=== PATIENT | male | born 1965 | race African-American/Black ===

== ENCOUNTER 2017-01-09 23:31 | Observation (INO) ==
[2017-01-09] MEDS ORDERED: SODIUM CHLORIDE 0.9% 1,000 ML IV STA (23:45)
--- NOTE | 2017-01-09 23:51 | Emergency Department Note ---
Prince Bustillo Brittany, am scribing for, and in the presence of, Mickey Chaudhry MD 23:50. Richa Bustillo Charles R, MD, personally performed the services described in this documentation, ascribed by Mariama Morrison in my presence, and it is both accurate and complete 351 . Arrival - Arrival Chief Complaint: Syncope ED Nursing Triage Note: C/O Syncopal Episode while talking to his friend. Pt reports drinking 2 beers earlier before this happened. Pt states he feels tired. Mode of Arrival: Stretcher Limitations: No Limitations Source: Patient, RN Notes Reviewed - History of Present Illness HPI Narrative: Patient is a 51 y/o black male presenting to the ED via EMS with c/o syncopal episode x2 that occurred tonight. Patient states that he was standing, talking to a friend when he had a syncopal episode. He reports that he has had some shortness of breath and feels very fatigued, but has not had any chest pain, headaches, abdominal pain, or nausea/vomiting. Denies family history of heart disease. Patient admits to EtOH use tonight stating that he drank two 24 oz. beers, but denies use of recreational drugs or tobacco. Patient does not verbalize any other complaints. Allergies/Adverse Reactions: Allergies Allergy/AdvReac Type Severity Reaction Status Date / Time No Known Allergies Allergy Verified 01/09/17 23:39 Home Medications: Home Medications Medication Instructions Recorded Confirmed Type No Known Home Medications [No 01/09/17 01/09/17 History Known Home Medications] Review of System - Review of System 12 point system: reviewed and no additional remarkable complaints except as stated - Review of System Constitutional: Present: weakness Respiratory: Present: respiratory distress Cardiovascular: Present: syncope. Absent: chest pain Gastrointestinal: Absent: nausea, vomiting Neurological: Absent: headache Medical,Surgical,& Family Hx - Social History Smoking Status: Never smoker Frequency of Alcohol Use: Frequently Type of Drug Use: None Exam Vital Signs: Vital Signs Temperature 98.8 F 01/09/17 23:39 Pulse Rate 78 01/09/17 23:51 Respiratory Rate 20 01/09/17 23:51 Blood Pressure 96/61 01/09/17 23:51 O2 Sat by Pulse Oximetry 98 01/09/17 23:51 - General General appearance: alert, lethargic - Head Head exam: Present: atraumatic, normocephalic - Eye Eye exam: Present: PERRL, EOMI - ENT ENT exam: Present: normal oropharynx, mucous membranes moist - Neck Neck exam: Present: normal inspection, full ROM, trachea midline - Chest Chest inspection: Present: normal inspection, symmetric chest wall rise - Respiratory Respiratory exam: Present: normal lung sounds bilaterally - Cardiovascular Cardiovascular exam: Present: regular rate, normal rhythm, normal heart sounds - Abdominal Exam Abdominal exam: Present: soft, normal bowel sounds. Absent: tenderness - Extremities Exam Extremities exam: Present: normal inspection - Back Exam Back exam: Present: normal inspection - Neurological Exam Neurological exam: Present: alert, oriented X3, CN II-XII intact. Absent: motor sensory deficit - Psychiatric Psychiatric exam: Present: normal affect, normal mood - Skin Skin exam: Present: warm, dry, intact, normal color Course - Consultations Consultation #1: Spoke to Dr. Ramos about the EKG with ST segment changes on the anterior leads. He did not think this is a STEMI. Workup medically Time: 23:45 Consultation #2: Hospitalist will admit patient Time: 00:42 Results - Labs CBC & BMP: 01/09/17 23:44 01/09/17 23:44 Lab Results: I have reviewed the patients labs Labs: Laboratory Tests 01/09/17 01/09/17 23:44 23:44 WBC 7.4 RBC 4.44 Hgb 13.5 L Hct 40.3 L Plt Count 196 Urine Color Yellow Urine Appearance Slightly hazy Urine pH 6.0 Ur Specific [place] 1.010 Urine Protein Negative Urine Glucose (UA) Negative Urine Ketones Negative Urine Blood Negative Urine Nitrate Positive H Urine Bilirubin Negative Urine Urobilinogen < 2.0 H Urine Leukocytes Trace Urine WBC 9 Urine Bacteria Many Hyaline Casts 3 Urine Mucus Occasional Laboratory Tests 01/09/17 23:44 Urine Opiates Screen Negative Ur Barbiturates Screen Negative Ur Phencyclidine Scrn Negative U Amphetamine/Methamph Negative U Benzodiazepines Scrn Negative U Cocaine Metab Screen Positive H U Cannabinoids Screen Negative Laboratory Tests 01/09/17 01/09/17 01/10/17 23:44 23:44 00:00 Sodium 140 Potassium 3.7 Chloride 107 Carbon Dioxide 22 BUN 16 Creatinine 1.50 H Glucose 142 H Lactic Acid 4.6 H Serum Alcohol 88 - Diagnostic Findings Procedure: CT: image reviewed by me, report reviewed by me (CT head negative) Critical Care Time Critical Care Time: Yes Total Critical Care Time: 60 Disposition Clinical Impression: Syncope and collapse, Hypotension, Sepsis, Sepsis associated hypotension, UTI ( urinary tract infection), Cocaine abuse, Renal insufficiency Case discussed with: patient, patient's family Disposition: Still a Patient Condition: Guarded Time of Disposition: 00:40
[2017-01-09 23:55] LABS: Basophils % 0.4 % (0.0-0.8); Eosinophils % 0.1 % (0.00-10.9); Hematocrit 40.3 VOL% (42.0-52.0); Hemoglobin 13.5 GM/DL (14.0-18.0); Immature Granulocytes % 0.4 %; Immature Granulocytes Absolute 0.03 #; Lymphocytes % 27.2 % (21.2-54.2); Mean Corpuscular HGB Conc 33.5 GM/DL (32-36); Mean Corpuscular Hemoglobin 30 PG (27-34); Mean Corpuscular Volume 90.8 FL (87-102); Mean Platelet Volume 11.6 FL (9.6-12.0); Monocytes # 0.5 10*3/uL (0.11-0.8); Monocytes % 6.9 % (1.7-12.7); Neutrophils # 4.8 10*3/uL (1.4-7.4); Platelet Count 196 T/CUMM (130-400); Red Blood Count 4.44 MC/CUMM (3.8-5.5); Red Cell Distribution Width 14.6 % (9.3-17.3); White Blood Count 7.4 T/CUMM (4-12)
[2017-01-10 00:06] LABS: Apearance,Urine Slightly Hazy (Clear); Bacteria,Urine Many /HPF (Few); Bilirubin,Urine Negative (Negative); Blood, Urine Negative (Negative); Glucose,Urine (UA) Negative (Negative); Hyaline Casts,Urine 3 /LPF (0-3); Ketones,Urine Negative (Negative); Mucus,Urine Occasional /LPF (Occasional); Nitrite,Urine Positive (Negative); Protein,Urine Negative; Urine Color Yellow (Yellow); Urine Urobilinogen < 2.0 EU/DL (0.2-1.0); WBC,Urine 9 /HPF (0-6)
[2017-01-10] MEDS ORDERED: cefTRIAXone 1,000 MG in SODIUM CHLORIDE 0.9% 100 ML IV STA (00:07)
[2017-01-10 00:09] LABS: Barbiturates Screen,Urine Negative (Negative); Benzodiazepines Screen,Urine Negative (Negative); Cannabinoid Screen,Urine Negative (Negative); Opiate Screen,Urine Negative (Negative); Phencyclidine Screen,Urine Negative (Negative)
[2017-01-10] MEDS ORDERED: SODIUM CHLORIDE 0.9% 100 ML IV ONE (00:18)
[2017-01-10] MEDS ORDERED: cefTRIAXone 1,000 MG VIAL ONE (00:18)
[2017-01-10 00:20] LABS: Alanine Aminotransferase 38 U/L (16-61); Albumin 3.9 G/DL (3.4-5.0); Alkaline Phosphatase 65 U/L (45-117); Aspartate Amino Transferase 23 U/L (0-37); Bilirubin,Total < 0.39 MG/DL (0.2-1.0); Blood Urea Nitrogen 16 MG/DL (7-18); Calcium 8.6 MG/DL (8.5-10.1); Glucose 142 MG/DL (74-106); Magnesium 2.2 MG/DL (1.8-2.4); Osmolality,Calculated 281.4 MOS/KG (273-304); Potassium 3.7 MMOL/L (3.5-5.1); Sodium 140 MMOL/L (136-145); Total Protein 7.3 G/DL (6.4-8.3); Troponin I Only < 0.015 NG/ML (0.00-0.045)
[2017-01-10] MEDS ORDERED: SODIUM CHLORIDE 0.9% 2,500 ML IV ONE (00:34)
[2017-01-10 00:50] LABS: INR 1.1; PT Patient Result 11.2 SECS
[2017-01-10] MEDS ORDERED: SODIUM CHLORIDE 0.9% 1,000 ML IV SCH ×2 (01:00→01:30)
[2017-01-10] MEDS ORDERED: LEVOFLOXACIN INJ 500 MG in PREMIX 1 EACH IV SCH (01:00)
[2017-01-10] MEDS ORDERED: ONDANSETRON 4 MG/2 ML VIAL IV PRN (01:21)
[2017-01-10] MEDS ORDERED: ACETAMINOPHEN 325 MG TABLET PO PRN (01:21)
[2017-01-10] MEDS ORDERED: LEVOFLOXACIN INJ 100 ML IV ONE (01:26)
--- NOTE | 2017-01-10 01:44 | Hospitalist History & Physical ---
Assessment and Plan - Time spent with patient Time spent with patient: Greater than 30 minutes (1) Syncope and collapse Status: Acute Assessment and plan: Admit to hospitalist services. Continue fluid resuscitation started in ED. Troponin was negative in ED; follow serial troponins. Serial EKGs. Faint systolic murmur heard during exam; Echo in am. A1c in am. Repeat CBC, CMP, Lactic acid, and UA in am. Current Visit: Yes (2) Hypotension Status: Acute Assessment and plan: As above for syncope. Monitor. Current Visit: Yes (3) DVT prophylaxis Status: Acute Assessment and plan: Lovenox 40 mg SQ daily. Current Visit: Yes History of Present Illness Chief complaint: Syncope History of present illness: Mr. Cerda is a 51 year old male with no known past medical history who was brought to the ED tonight by EMS after having a syncopal episode. Mr. Cerda reports that he was standing outside next to his car when he felt excessively sweaty and slightly short of breath followed by him passing out. The event was witnessed by his who is present in the ED with him. Mr. Cerda denies any previous similar episodes, chest pain, or N/V/D. Mr. Cerda reports that he was outside walking a lot today and that he mostly drank Cokes and very little water. He reports occasional alcohol and drug use. Tonight he reports consuming 2 beers and a shot of gin. Last use of marijuana was about 2 months ago and last use of cocaine was 2 days ago, previous use of cocaine was a year ago. Blood pressure reported by EMS was 70s/40s. In the ED, he was given bolus fluids and his pressure has gradually improved. His lactic acid was 4.6. Dr. Chaudhry discussed the patient's EKG abnormalities with Dr. Ramos, and it was determined that changes did not reflect a STEMI. Troponins were negative. Hospitalist services were consulted, and the patient will be admitted to observation for further evaluation and treatment. Home Medications Medication Instructions Recorded Confirmed Type No Known Home Medications [No 01/09/17 01/09/17 History Known Home Medications] Allergies Allergy/AdvReac Type Severity Reaction Status Date / Time No Known Allergies Allergy Verified 01/09/17 23:39 Medical,Surgical,& Family Hx - Medical History Medical History: noncontributory (PMH was discussed with the patient at length. He denies any past medical history.) - Surgical History Surgical History: noncontributory (Past surgical history was discussed with the patient at length. He denies any past surgeries.) - Family History Family History: Reports;: Family Diabetes (mother) - Social History Smoking Status: Current every day smoker (1 pack per week) Have you smoked in the last 12 months: Yes Time spent discussing smoking cessation with patient: 3 to 10 minutes (3 minutes were spent discussing smoking cessation with the patient.) Frequency of Alcohol Use: Occasionally (Denies daily use of alcohol.) Type of Drug Use: Cocaine (Rarely; last use 2 days ago. ), Marijuana ( Occasional use; Last use 2 months ago. ) Marital Status: Lives With:: Spouse Functional capacity: independent ambulation 12 point system: reviewed and no additional remarkable complaints except as stated - Constitutional Constitutional: Present: weakness. Absent: chills, fever(s), lethargy, malaise - EENT Eyes: Absent: blurry vision, diplopia, loss of vision Ears: Absent: decreased hearing, ear discharge, ear pain Nose, mouth and throat: Absent: headache(s), nasal congestion, sore throat - Cardiovascular Cardiovascular: Present: diaphoresis, dyspnea. Absent: chest pain at rest, chest pain with activity, edema, orthopnea, palpitations - Respiratory Respiratory: Present: dyspnea. Absent: cough, wheezing - Gastrointestinal Gastrointestinal: Absent: abdominal pain, diarrhea, nausea, vomiting - Genitourinary Genitourinary: Absent: dysuria, flank pain, urinary frequency - Musculoskeletal Musculoskeletal: Absent: arthralgias, joint swelling, muscle weakness, myalgias - Neurological Neurological: Present: syncope. Absent: dizziness, numbness, paresthesias - Psychiatric Psychiatric: Absent: anxiety, depression - Endocrine Endocrine: Absent: cold intolerance, polydipsia, polyphagia, polyuria - Hematologic/Lymphatic Hematologic/Lymphatic: Absent: easy bleeding, easy bruising Exam - Constitutional Vitals: Period Temp Pulse Resp BP Sys/Newsome Pulse Ox Last 24 Hr 98.8 F-98.8 F 78-87 16-20 91-96/51-61 94-98 Exam: Constitutional System: Afebrile. Awake, alert and oriented x 3. No distress. No tremulousness. Head: Normocephalic, atraumatic. Ears, Nose and Throat System: No pain or tenderness. No epistaxis or discharge Eyes System: Pupils equal, round, and reactive. Extraocular muscles intact. Neck: Supple, without adenopathy, No jugular venous distention. No thyromegaly, neck mass, or prior surgery apparent. Respiratory System: Chest clear to auscultation. Cardiovascular System: Heart with regular rate and rhythm. Faint systolic murmur present. GI System: Abdomen soft, nontender. Normo active bowel sounds present. Musculoskeletal System: limbs with no pedal edema. Full distal pulses. Normal capillary refill. Neurological System: No discernable sensory deficit. No aphasia Psychiatric System: Conversation is rational Results - Labs CBC & BMP: 01/09/17 23:44 01/09/17 23:44 Lab Results: I have reviewed the past 24 hour labs - EKG EKG results: interpreted by DOMENICO - Diagnostic Findings Procedure: Chest x-ray: pending, CT: pending (Head)
[2017-01-10 06:11] LABS: Basophils % 0.2 % (0.0-0.8); Eosinophils % 0.1 % (0.00-10.9); Hematocrit 38.5 VOL% (42.0-52.0); Hemoglobin 12.9 GM/DL (14.0-18.0); Immature Granulocytes % 0.4 %; Immature Granulocytes Absolute 0.04 #; Lymphocytes # 2.5 10*3/uL (1.4-4.0); Lymphocytes % 24.6 % (21.2-54.2); Mean Corpuscular HGB Conc 33.5 GM/DL (32-36); Mean Corpuscular Hemoglobin 30 PG (27-34); Mean Corpuscular Volume 90.8 FL (87-102); Mean Platelet Volume 11.7 FL (9.6-12.0); Monocytes # 0.7 10*3/uL (0.11-0.8); Monocytes % 6.7 % (1.7-12.7); Neutrophils # 6.9 10*3/uL (1.4-7.4); Platelet Count 188 T/CUMM (130-400); Red Blood Count 4.24 MC/CUMM (3.8-5.5); Red Cell Distribution Width 14.8 % (9.3-17.3); White Blood Count 10.2 T/CUMM (4-12)
[2017-01-10 06:43] LABS: Albumin 3.3 G/DL (3.4-5.0); Bilirubin,Total 0.5 MG/DL (0.2-1.0); Calcium 8.3 MG/DL (8.5-10.1); Osmolality,Calculated 287.7 MOS/KG (273-304); Potassium 4.3 MMOL/L (3.5-5.1); Total Protein 6.3 G/DL (6.4-8.3)
--- NOTE | 2017-01-10 07:12 | EKG Report ---
Stationary ECG Study [facility] Test Date: 01/10/2017 4:13:06 AM Pat Name: GLYNN OLIVERA Department: Room: 286 Gender: M Vp Platforms: : 1965 Requested by: Stephany Jessica Order Number: [id number] Reading MD: MEGHAN MEDEIROS Intervals [place] Rate: 81 P: 98 VT: 163 QRS: 85 QRSD: 93 T: 42 QT: 413 QTc: 451 Interpretive Statements SINUS RHYTHM RSR (QR) IN V1/V2 CONSISTENT WITH RIGHT VENTRICULAR CONDUCTION DELAY VOLTAGE CRITERIA FOR LVH NONSPECIFIC T WAVE ABNORMALITY LONG QT INTERVAL Electronically Signed On 01-10-17 11:21:44 CDT by MEGHAN MEDEIROS [email or web address]
--- NOTE | 2017-01-10 07:13 | EKG Report ---
Stationary ECG Study [facility] ER Test Date: 01/09/2017 11:39:06 PM Pat Name: GLYNN OLIVERA Department: Room: 286 Gender: M Patrol Conductor: : 1965 Requested by: Mickey Matta Order Number: [id number] Emiliano MD: MEGHAN MEDEIROS Intervals [place] Rate: 84 P: 68 [place]: 147 QRS: 54 QRSD: 95 T: 56 QT: 384 QTc: 425 Interpretive Statements SINUS RHYTHM POSSIBLE RIGHT VENTRICULAR CONDUCTION DELAY VOLTAGE CRITERIA FOR LVH ST ELEVATION, CONSIDER ANTERIOR INJURY ACUTE [place] Electronically Signed On 01-10-17 11:21:22 CDT by MEGHAN MEDEIROS [email or web address]
--- NOTE | 2017-01-10 07:50 | CT Report ---
CT of the head without contrast. Indication: Syncope. No prior studies. There is a preliminary report from [facility]. The ventricles are normal in size and configuration. There is no mass effect, midline shift, or area of hemorrhage. No ischemic lesions are seen. The calvarium is intact. The included paranasal sinuses and the mastoid air cells are clear. Impression: No abnormality is seen. The CT exam was performed using one or more of the following dose reduction techniques: Automated exposure control, adjustment of the mA and/or kV according to patient size, or use of iterative reconstruction technique. PROCEDURE INTERPRETED AT [facility] DEPARTMENT OF RADIOLOGY Final Report Signed by: Dr. Fabiola Shoemaker
[2017-01-10] MEDS ORDERED: ENOXAPARIN 40 MG/0.4 ML SYRINGE SUBCUT SCH (09:00)
--- NOTE | 2017-01-10 10:14 | XRay Report ---
Portable chest. Indication: Shortness of breath. The heart is normal in size. The pulmonary vasculature is normal. The lung pryor are free of infiltrate. No pneumothorax or pleural effusion. Mild degenerative changes of the spinal column. Impression: No acute abnormality. PROCEDURE INTERPRETED AT [facility] DEPARTMENT OF RADIOLOGY Final Report Signed by: Dr. Fabiola Shoemaker
--- NOTE | 2017-01-10 11:30 | Discharge Summary ---
Hospital Course - Hospital Course Hospital Course: 51 year old male with no known past medical history who was brought to the ED tonight by EMS after having a syncopal episode. Mr. Cerda reports that he was standing outside next to his car when he felt excessively sweaty and slightly short of breath followed by him passing out. The event was witnessed by his who is present in the ED with him. Patient was not hydrating well and urine drug screen was positive for cocaine. Serial troponins were negative. Patient did have evidence of a UTI. We have gently treated him overnight and he feels better. He has nonspecific ST changes in the anterior and lateral leads with LVH due to the cocaine. Blood pressure is stable today. Patient's blood sugars were a little elevated and his hemoglobin A1c is 6.6. It is probably why he had some dehydration. He can be discharged home but would recommend an outpatient stress test but not for 2 weeks. We will set him up to see Dr. Jones as an outpatient. We will ask him to see her primary care doctor for further discussion about his diabetes but I would just make diet changes for now. - Time spent with patient Time with patient DS: Less than 30 minutes (25 minute) Discharge Plan - Discharge Data Disposition: Disch To Home/Self Care Condition at Discharge: Stable Discharge Diet: diabetic diet Activity: resume usual activities as tolerated Hygiene: no restrictions Weight Bearing at Discharge: full weight bearing Driving: no restrictions - Discharge Medications New Cefuroxime Tab [Ceftin] 500 mg PO BID #10 tablet - Follow Up or Referral Follow Up: [facility] [Provider Group] Fabio Jones MD [Physician] - (upon receiving insurance needs stress test within two to 4 weeks ) - Forms/Instructions Additional Discharge Instructions: cholesterol needs to be tested when fasting. discussed already no more cocaine. diabetic menu for patient to take home Exam - Constitutional Vitals: Period Temp Pulse Resp BP Sys/Newsome Pulse Ox Last 24 Hr 96.8 F-98.8 F 65-90 14-22 91-146/51-82 94-98 General appearance: normal weight, no acute distress - Respiratory Respiratory exam: Present: clear to auscultation bilaterally. Absent: rhonchi, wheezes - Cardiovascular Cardiovascular exam: Present: regular rate and rhythm. Absent: systolic murmur - GI/Abdominal GI/Abdominal exam: Present: normal bowel sounds, soft. Absent: tenderness - Extremities Exam Extremities exam: Present: normal inspection, normal capillary refill Discharge Results Procedures and tests throughout hospitalization: Pending Orders 01/10/17 Urine Culture Routine 01/10/17 04:00 Urinalysis 01/10/17 23:44 Blood Culture Stat Labs on day of discharge: Labs from last 24 hours 01/10/17 01/10/17 01/10/17 07:45 05:38 05:38 WBC RBC Hgb Hct MCV MCH MCHC RDW Plt Count MPV Neut % (Auto) Lymph % (Auto) [place] % (Auto) Eos % (Auto) Baso % (Auto) Neut # (Auto) Lymph # (Auto) [place] # (Auto) Eos # (Auto) Baso # (Auto) Immature Gran % Nucleated RBC % Immature Gran # Nucleated RBCs # Immature Plt Fraction INR PT Patient/Control Mix D-Dimer, Quantitative Circ Anticoag PTT Sodium Potassium Chloride Carbon Dioxide Anion Gap BUN Creatinine GFR Calculation BUN/Creatinine Ratio Glucose Hemoglobin A1c 6.6 H Calculated Osmolality Lactic Acid Calcium Magnesium Total Bilirubin AST ALT Alkaline Phosphatase Total Creatine Kinase CK-MB (CK-2) Troponin I 0.015 < 0.015 B-Natriuretic Peptide Total Protein Albumin Globulin Albumin/Globulin Ratio Urine Color Urine Appearance Urine pH Ur Specific [place] Urine Protein Urine Glucose (UA) Urine Ketones Urine Blood Urine Nitrate Urine Bilirubin Urine Urobilinogen Urine Leukocytes Urine WBC Urine Bacteria Hyaline Casts Urine Mucus Ur Culture Indicated? Urine Opiates Screen Ur Barbiturates Screen Ur Phencyclidine Scrn U Amphetamine/Methamph U Benzodiazepines Scrn U Cocaine Metab Screen U Cannabinoids Screen Serum Alcohol Blood Type Antibody Screen 01/10/17 01/10/17 01/10/17 05:38 05:38 05:38 WBC 10.2 D RBC 4.24 Hgb 12.9 L Hct 38.5 L MCV 90.8 MCH 30 MCHC 33.5 RDW 14.8 Plt Count 188 MPV 11.7 Neut % (Auto) 68.0 Lymph % (Auto) 24.6 Dickey % (Auto) 6.7 Eos % (Auto) 0.1 Baso % (Auto) 0.2 Neut # (Auto) 6.9 Lymph # (Auto) 2.5 Dickey # (Auto) 0.7 Eos # (Auto) 0.0 Baso # (Auto) 0.0 Immature Gran % 0.4 Nucleated RBC % 0.0 Immature Gran # 0.04 Nucleated RBCs # 0.00 Immature Plt Fraction 0.0 INR PT Patient/Control Mix D-Dimer, Quantitative Circ Anticoag PTT Sodium 145 Potassium 4.3 Chloride 113 H Carbon Dioxide 26 Anion Gap 10.3 BUN 12 Creatinine 1.00 GFR Calculation 121 BUN/Creatinine Ratio 12.00 Glucose 99 Hemoglobin A1c Calculated Osmolality 287.7 Lactic Acid 1.9 Calcium 8.3 L Magnesium Total Bilirubin 0.50 AST 23 ALT 35 Alkaline Phosphatase 67 Total Creatine Kinase CK-MB (CK-2) Troponin I B-Natriuretic Peptide Total Protein 6.3 L Albumin 3.3 L Globulin 3.0 Albumin/Globulin Ratio 1.1 Urine Color Urine Appearance Urine pH Ur Specific [place] Urine Protein Urine Glucose (UA) Urine Ketones Urine Blood Urine Nitrate Urine Bilirubin Urine Urobilinogen Urine Leukocytes Urine WBC Urine Bacteria Hyaline Casts Urine Mucus Ur Culture Indicated? Urine Opiates Screen Ur Barbiturates Screen Ur Phencyclidine Scrn U Amphetamine/Methamph U Benzodiazepines Scrn U Cocaine Metab Screen U Cannabinoids Screen Serum Alcohol Blood Type Antibody Screen 01/10/17 01/10/17 01/10/17 00:00 00:00 00:00 WBC RBC Hgb Hct MCV MCH MCHC RDW Plt Count MPV Neut % (Auto) Lymph % (Auto) [place] % (Auto) Eos % (Auto) Baso % (Auto) Neut # (Auto) Lymph # (Auto) [place] # (Auto) Eos # (Auto) Baso # (Auto) Immature Gran % Nucleated RBC % Immature Gran # Nucleated RBCs # Immature Plt Fraction INR 1.1 PT Patient/Control Mix 11.2 D-Dimer, Quantitative Circ Anticoag PTT 26.0 Sodium Potassium Chloride Carbon Dioxide Anion Gap BUN Creatinine GFR Calculation BUN/Creatinine Ratio Glucose Hemoglobin A1c Calculated Osmolality Lactic Acid 4.6 H Calcium Magnesium Total Bilirubin AST ALT Alkaline Phosphatase Total Creatine Kinase 510 H CK-MB (CK-2) 1.6 Troponin I B-Natriuretic Peptide Total Protein Albumin Globulin Albumin/Globulin Ratio Urine Color Urine Appearance Urine pH Ur Specific [place] Urine Protein Urine Glucose (UA) Urine Ketones Urine Blood Urine Nitrate Urine Bilirubin Urine Urobilinogen Urine Leukocytes Urine WBC Urine Bacteria Hyaline Casts Urine Mucus Ur Culture Indicated? Urine Opiates Screen Ur Barbiturates Screen Ur Phencyclidine Scrn U Amphetamine/Methamph U Benzodiazepines Scrn U Cocaine Metab Screen U Cannabinoids Screen Serum Alcohol Blood Type Antibody Screen 01/09/17 01/09/17 01/09/17 23:44 23:44 23:44 WBC RBC Hgb Hct MCV MCH MCHC RDW Plt Count MPV Neut % (Auto) Lymph % (Auto) [place] % (Auto) Eos % (Auto) Baso % (Auto) Neut # (Auto) Lymph # (Auto) [place] # (Auto) Eos # (Auto) Baso # (Auto) Immature Gran % Nucleated RBC % Immature Gran # Nucleated RBCs # Immature Plt Fraction INR PT Patient/Control Mix D-Dimer, Quantitative Circ Anticoag PTT Sodium Potassium Chloride Carbon Dioxide Anion Gap BUN Creatinine GFR Calculation BUN/Creatinine Ratio Glucose Hemoglobin A1c Calculated Osmolality Lactic Acid Calcium Magnesium Total Bilirubin AST ALT Alkaline Phosphatase Total Creatine Kinase CK-MB (CK-2) Troponin I B-Natriuretic Peptide Total Protein Albumin Globulin Albumin/Globulin Ratio Urine Color Yellow Urine Appearance Slightly hazy Urine pH 6.0 Ur Specific [place] 1.010 Urine Protein Negative Urine Glucose (UA) Negative Urine Ketones Negative Urine Blood Negative Urine Nitrate Positive H Urine Bilirubin Negative Urine Urobilinogen < 2.0 H Urine Leukocytes Trace Urine WBC 9 Urine Bacteria Many Hyaline Casts 3 Urine Mucus Occasional Ur Culture Indicated? Results to follow Urine Opiates Screen Negative Ur Barbiturates Screen Negative Ur Phencyclidine Scrn Negative U Amphetamine/Methamph Negative U Benzodiazepines Scrn Negative U Cocaine Metab Screen Positive H U Cannabinoids Screen Negative Serum Alcohol 88 Blood Type Antibody Screen 01/09/17 01/09/17 01/09/17 23:44 23:44 23:44 WBC RBC Hgb Hct MCV MCH MCHC RDW Plt Count MPV Neut % (Auto) Lymph % (Auto) [place] % (Auto) Eos % (Auto) Baso % (Auto) Neut # (Auto) Lymph # (Auto) [place] # (Auto) Eos # (Auto) Baso # (Auto) Immature Gran % Nucleated RBC % Immature Gran # Nucleated RBCs # Immature Plt Fraction INR PT Patient/Control Mix D-Dimer, Quantitative <= 0.5 Circ Anticoag PTT Sodium Potassium Chloride Carbon Dioxide Anion Gap BUN Creatinine GFR Calculation BUN/Creatinine Ratio Glucose Hemoglobin A1c Calculated Osmolality Lactic Acid Calcium Magnesium Total Bilirubin AST ALT Alkaline Phosphatase Total Creatine Kinase CK-MB (CK-2) Troponin I B-Natriuretic Peptide 7 Total Protein Albumin Globulin Albumin/Globulin Ratio Urine Color Urine Appearance Urine pH Ur Specific [place] Urine Protein Urine Glucose (UA) Urine Ketones Urine Blood Urine Nitrate Urine Bilirubin Urine Urobilinogen Urine Leukocytes Urine WBC Urine Bacteria Hyaline Casts Urine Mucus Ur Culture Indicated? Urine Opiates Screen Ur Barbiturates Screen Ur Phencyclidine Scrn U Amphetamine/Methamph U Benzodiazepines Scrn U Cocaine Metab Screen U Cannabinoids Screen Serum Alcohol Blood Type O POSITIVE Antibody Screen Negative 01/09/17 01/09/17 23:44 23:44 WBC 7.4 RBC 4.44 Hgb 13.5 L Hct 40.3 L MCV 90.8 MCH 30 MCHC 33.5 RDW 14.6 Plt Count 196 MPV 11.6 Neut % (Auto) 65.0 Lymph % (Auto) 27.2 Dickey % (Auto) 6.9 Eos % (Auto) 0.1 Baso % (Auto) 0.4 Neut # (Auto) 4.8 Lymph # (Auto) 2.0 [place]ickey # (Auto) 0.5 Eos # (Auto) 0.0 Baso # (Auto) 0.0 Immature Gran % 0.4 Nucleated RBC % 0.0 Immature Gran # 0.03 Nucleated RBCs # 0.00 Immature Plt Fraction 0.0 INR PT Patient/Control Mix D-Dimer, Quantitative Circ Anticoag PTT Sodium 140 Potassium 3.7 Chloride 107 Carbon Dioxide 22 Anion Gap 14.7 BUN 16 Creatinine 1.50 H GFR Calculation 64 BUN/Creatinine Ratio 10.00 Glucose 142 H Hemoglobin A1c Calculated Osmolality 281.4 Lactic Acid Calcium 8.6 Magnesium 2.2 Total Bilirubin < 0.39 AST 23 ALT 38 Alkaline Phosphatase 65 Total Creatine Kinase CK-MB (CK-2) Troponin I < 0.015 B-Natriuretic Peptide Total Protein 7.3 Albumin 3.9 Globulin 3.4 Albumin/Globulin Ratio 1.1 Urine Color Urine Appearance Urine pH Ur Specific [place] Urine Protein Urine Glucose (UA) Urine Ketones Urine Blood Urine Nitrate Urine Bilirubin Urine Urobilinogen Urine Leukocytes Urine WBC Urine Bacteria Hyaline Casts Urine Mucus Ur Culture Indicated? Urine Opiates Screen Ur Barbiturates Screen Ur Phencyclidine Scrn U Amphetamine/Methamph U Benzodiazepines Scrn U Cocaine Metab Screen U Cannabinoids Screen Serum Alcohol Blood Type Antibody Screen DS: Provider Date of admission: 01/10/17 00:56 Primary care physician: . No PCP Attending physician on admission: Rajiv Beaulieu MD Discharging clinician: Nelly Anthony MD
[2017-01-10 11:46] VITALS: BP 122/64
--- NOTE | 2017-01-11 08:56 | ECHO Report ---
Juan Cerda Exam Date: 01/10/2017 09:01 Referring Physician: Technologist: deacon Cerda ARDMS, RVT Age: 51 Ht (in): 72 Wt (lb): 185 Gender: M Exam Location: [facility] Echo Indications: Syncope and collapse, Hypotension BP: 120 / 64 HR: 62 Rhythm: Sinus Technical Quality: Fair IMPRESSIONS Normal left ventricular cavity size. Mild left ventricular hypertrophy. Left ventricular ejection fraction is estimated at 55-60%. The right ventricle is normal in size and function. The right atrium is normal in size. The left atrium is normal in size. Mildly thickened mitral valve. Trace mitral valve regurgitation. The aortic valve is trileaflet and has normal motion. Thickened aortic valve. No aortic valve stenosis. Mild aortic valve regurgitation. Morphologically normal tricuspid valve. [id number] tricuspid valve regurgitation. Tricuspid regurgitation velocities suggest a PAP of 36 mmHg. Morphologically normal pulmonic valve without significant stenosis. There is no pulmonic regurgitation. Normal pericardium without effusion. Normal ascending aorta dimension. MEASUREMENTS (Male / Female) Normal Values 2D ECHO LV Diastolic Diameter PLAX 4.3 cm 4.2 - 5.9 / 3.9 - 5.3 cm LV Systolic Diameter PLAX 2.1 cm LV Fractional Shortening PLAX 51.6 % IVS Diastolic Thickness 1.1 cm 0.6 - 1.0 / 0.6 - 0.9 cm LVPW Diastolic Thickness 1.1 cm 0.6 - 1.0 / 0.6 - 0.9 cm RV Internal Dim ED PLAX 3.7 cm Aortic Root Diameter 3.0 cm LA Systolic Diameter LX 3.2 cm 3.0 - 4.0 / 2.7 - 3.8 cm DOPPLER TR Peak Velocity 255.0 cm/s TR Peak Gradient 26.0 mmHg FINDINGS Left Ventricle Normal left ventricular cavity size. Mild left ventricular hypertrophy. Left ventricular ejection fraction is estimated at 55-60%. Right Ventricle The right ventricle is normal in size and function. Right Atrium The right atrium is normal in size. Left Atrium The left atrium is normal in size. Mitral Valve Mildly thickened mitral valve. Trace mitral valve regurgitation. Aortic Valve The aortic valve is trileaflet and has normal motion. Thickened aortic valve. No aortic valve stenosis. Mild aortic valve regurgitation. Tricuspid Valve Morphologically normal tricuspid valve. [id number] tricuspid valve regurgitation. Tricuspid regurgitation velocities suggest a PAP of 36 mmHg. Pulmonic Valve Morphologically normal pulmonic valve without significant stenosis. There is no pulmonic regurgitation. Pericardium Normal pericardium without effusion. Aorta Normal ascending aorta dimension. Fabio Jones MD (Electronically Signed) Final Date: 11 January 2017 08:54
== END 2017-01-10 12:53 | disposition home or self-care (01) ==
LOC: N.EDINP 23:31 → N.ED 23:31 → SUATTDRO 01-10 00:56 → N.TELEN 01-10 02:43
PROVIDERS: ADMIT Internal Medicine; ATTEND Internal Medicine